=== PATIENT | female | born 1970 | race African-American/Black ===

== ENCOUNTER 2018-01-16 08:02 | Inpatient (IN) | payer OTHER ==
[~2018-01-16] VITALS: Ht 152.4 cm; Wt 57.0 kg
[2018-01-16] VITALS (8 sets, daily range): BP systolic 108–128; BP diastolic 45–78
--- NOTE | ~2018-01-16 | EKG ---
[address] [address] ELECTROCARDIOGRAM REPORT Name: JING JUARES Room #: 450-P ADM IN M.R.#: [id number] Admission: 01/16/18 Attend Phys: Ricardo Wyman MD Discharge: Date of : 66 Report #: [id number] THIS REPORT FOR: //name// [facility] ED Test Date: 2018-01-16 Test Time: 08:14:56 Pat Name: JING JUARES Department: Room: [facility] Gender: F [employer] Inspector: JUNE : 1970 Requested By: Eugene Felix Order Number: [id number] MD: Soham Serna Measurements Intervals [place] Rate: 73 P: -7 ID: [id number] QRS: 38 QRSD: 87 T: 33 QT: 458 QTc: 505 Interpretive Statements Sinus rhythm No previous ECG available for comparison Electronically Signed On 01-16-2018 13:24:59 CDT by Soham Serna [email or web address] <ELECTRONICALLY SIGNED> By: Soham Serna MD 01/16/18 1324 0814 0814 MD BECCA Bonilla
[2018-01-16 08:46] LABS: WBC 11.1 thou/uL (4.0-11.0)
[2018-01-16 08:48] LABS: MCHC 26.5 g/dL (28.0-37.0); MCV 60.2 fL (80.0-100.0); PLATELET COUNT 187 thou/uL (150-400); RDW 20.5 % (10.5-14.5)
[2018-01-16 08:49] LABS: ANION GAP 9 mmol/L (7-16); BUN 8 mg/dL (7-18); CALCIUM 9.1 mg/dL (8.5-10.1); CHLORIDE 107 mmol/L (98-107); CO2 25 mmol/L (21-32); CREATININE 0.7 mg/dL (0.6-1.0); GLUCOSE 131 mg/dL (74-106); POTASSIUM 3.8 mmol/L (3.5-5.1); SODIUM 141 mmol/L (136-145)
[2018-01-16 08:58] LABS: TROPONIN-I <0.06 ng/mL (<0.06)
[2018-01-16 09:05] LABS: ALBUMIN 3.1 g/dL (3.4-5.0); DIRECT BILIRUBIN 0.2 mg/dL (<0.1-0.3); TOTAL BILIRUBIN 0.5 mg/dL (<0.1-1.0); TOTAL PROTEIN 7.5 g/dL (6.4-8.2)
[2018-01-16 09:14] LABS: ABSOLUTE RETIC COUNT 0.0474 10^6/uL; OBSERVED RETIC COUNT 1.89 % (0.6-2.6)
[2018-01-16 09:21] LABS: % SATURATION 2 % (20-39); IRON 7 ug/dL (50-170); TIBC 393 ug/dL (250-450)
[2018-01-16 09:29] LABS: URINE BILIRUBIN NEGATIVE (Negative); URINE BLOOD 3+ (Negative); URINE CLARITY CLOUDY; URINE COLOR YELLOW; URINE GLUCOSE-RANDOM* NEGATIVE (Negative); URINE KETONES NEGATIVE (Negative); URINE NITRITE-REFLEX NEGATIVE (Negative); URINE PROTEIN (DIPSTICK) 1+ (Negative); URINE SPECIFIC GRAVITY 1.025 (1.005-1.035); URINE UROBILINOGEN 0.2 E.U./dl (0.2-1.0)
[2018-01-16 09:33] LABS: URINE LEUKOCYTES-REFLEX TRACE (Negative)
[2018-01-16 09:35] LABS: ABSOLUTE NEUTROPHILS 9.9 thou/uL (1.4-8.2); PLATELET ESTIMATE NORMAL
[2018-01-16 09:36] LABS: ANISOCYTOSIS 1+; HYPOCHROMASIA 3+; MICROCYTES 3+
[2018-01-16 09:40] LABS: CASTS None Seen /LPF (None Seen); CRYSTALS None Seen /LPF (None Seen); SQUAMOUS 0-3 Few /LPF (0-3); URINE RBC >20 Many /HPF (0-2)
[2018-01-16 09:41] LABS: BACTERIA-REFLEX 1-9 Few /HPF (None Seen); URINE WBC-REFLEX 6-15 Few /HPF (0-5)
[2018-01-16 20:05] LABS: HEMATOCRIT 17.7 % (37.0-47.0); HEMOGLOBIN 5.3 gm/dL (12.0-15.0)
[2018-01-17] VITALS (7 sets, daily range): BP systolic 118–126; BP diastolic 69–75
[2018-01-17 02:12] LABS: RBC 2.89 mil/uL (4.20-5.00)
[2018-01-17 02:13] LABS: HEMATOCRIT 20.1 % (37.0-47.0); MCHC 30.2 g/dL (28.0-37.0); WBC 11.3 thou/uL (4.0-11.0)
[2018-01-17 02:19] LABS: CALCIUM 8.1 mg/dL (8.5-10.1); CREATININE 0.6 mg/dL (0.6-1.0); POTASSIUM 3.6 mmol/L (3.5-5.1)
[2018-01-17 02:20] LABS: MCV 69.5 fL (80.0-100.0)
[2018-01-17 02:24] LABS: HEMOGLOBIN 6.1 gm/dL (12.0-15.0)
[2018-01-17 10:55] LABS: HEMATOCRIT 23.2 % (37.0-47.0); HEMOGLOBIN 7.1 gm/dL (12.0-15.0)
[2018-01-19 15:10] LABS: HGB SOLUBILITY Negative (Negative)
== END 2018-01-17 17:44 | disposition home or self-care (01) | DRG 761 ==
LOC: ER 08:02 → EROBS 09:53 → 4W 09:53 → ENTRNSPT 01-17 14:47 → EDTRNSPTSTS 01-17 15:03 → 4W 01-17 17:44
PROVIDERS: Emergency Medicine; Hospitalist; Internal Medicine
PROC: 30233N1 Transfusion of Nonautologous Red Blood Cells into Peripheral Vein, Percutaneous Approach (ICD-10-PCS; principal; 2018-01-16)
DX: D25.9 Leiomyoma of uterus, unspecified (principal); D50.0 Iron deficiency anemia secondary to blood loss (chronic)
CPT/HCPCS: 10045